=== PATIENT | male | born 1980 | race Two or more races ===

== ENCOUNTER 2017-02-25 04:26 | Emergency (ER) | payer SELFPAY ==
[2017-02-25 04:31] VITALS: O2SAT 96
--- NOTE | 2017-02-25 04:32 | EDPHY ---
H & P Stated Complaint: racoon bite on right leg and foot HPI/ROS: HPI CHIEF COMPLAINT: Raccoon bite to right leg HISTORY OF PRESENT ILLNESS: This patient 36-year-old male, from [facility], here on vacation, he was walking his dog around 4:00 a.m. when his dog started to pull him and bark. The next thing he knows there was a raccoon about a foot away from him it bit him the back of his right leg. Scratched his right foot. Patient is unsure of his tetanus shot is up-to-date. He has no allergies. Denies any medical problems. Presents emergency room for care of his raccoon bite. Lives in [facility] and is due to go back there tomorrow. Past Medical History: No medical history Past Surgical History: No surgical history Social History: Denies daily use of drugs alcohol tobacco products Family History: Noncontributory ROS REVIEW OF SYSTEMS: A comprehensive 10 point review of systems is otherwise negative aside from elements mentioned in the history of present illness. Exam Constitutional triage nursing summary reviewed, vital signs reviewed, awake/ alert. Eyes normal conjunctivae and sclera, EOMI, PERRLA. HENT normal inspection, atraumatic, moist mucus membranes, no epistaxis, neck supple/ no meningismus, no raccoon eyes. Respiratory clear to auscultation bilaterally, normal breath sounds, no respiratory distress, no wheezing. Cardiovascular rate normal, regular rhythm, no murmur, no edema, distal pulses normal. Gastrointestinal soft, non-tender, no rebound, no guarding, normal bowel sounds, no distension, no pulsatile mass. Genitourinary no CVA tenderness. Musculoskeletal no midline vertebral tenderness, full range of motion, no calf swelling, no tenderness of extremities, no meningismus, good pulses, neurovascularly intact. Skin right leg: Posterior right mid calf there is deep abrasions present possible puncture wound from a bite bryce, no laceration, also right foot dorsum of the right foot there is 2 abrasions. Otherwise unremarkable. Neurologic awake, alert and oriented x 3, AAOx3, moves all 4 extremities equally, motor intact, sensory intact, CN II-XII intact, normal cerebellar, normal vision, normal speech. Psychiatric normal mood/affect. Heme/Lymph/Immune no lymphadenopathy. Differential Diagnosis: Includes but is not limited to in a particular order: Need for tetanus, need for wound care, need for rabies immunoglobulin and rabies vaccination. Medical Decision Making: Plan for this patient patient's wounds will be cleaned. Update his tetanus shot. Start rabies immunoglobulin and rabies vaccine. The patient undergo a series of rabies shots. He will need follow-up in [facility]. As he is due to go there tomorrow. Will start his series here. Source: Patient - Personal History Current Tetanus Diphtheria and Acellular Pertussis (TDAP): Unsure - Medical/Surgical History Hx Asthma: No Hx Chronic Respiratory Disease: No Hx Diabetes: No Hx Cardiac Disease: No Hx Renal Disease: No Hx Cirrhosis: No Hx Alcoholism: No Hx HIV/AIDS: No Hx Splenectomy or Spleen Trauma: No - Social History Smoking Status: Never smoked Constitutional: Initial Vital Signs Temperature (C) 36.9 C 02/25/17 04:28 Heart Rate 81 02/25/17 04:28 Respiratory Rate 18 02/25/17 04:28 Blood Pressure 122/82 H 02/25/17 04:28 O2 Sat (%) 96 02/25/17 04:28 O2 Delivery Mode Room Air Allergies/Adverse Reactions: No Known Allergies Allergy (Unverified 02/25/17 04:28) Home Medications: Medication Instructions Recorded NK [No Known Home Meds] 02/25/17 Departure - Departure Disposition: Home, Routine, Self-Care Clinical Impression: Raccoon bite Qualifiers: Encounter type: initial encounter Qualified Code(s): W55.51XA - Bitten by raccoon, initial encounter Condition: Good Instructions: Tetanus (ED), Rabies Vaccine (ED), Rabies Immune Globulin (By injection) Additional Instructions: 1. Watch closely for signs of infection this includes redness, swelling, pus, drainage. 2. Please follow up with her doctor in [facility] you may need to go to an emergency room to get the next series of rabies immunoglobulin shots. 3. Rabies postexposure prophylaxis consists of a dose of human rabies immune globulin and rabies vaccine given on the day of the exposure,(which you recieved ) and then a dose of vaccine given again on days 3, 7, and 14 Referrals: NONE *PRIMARY CARE P,. [Primary Care Provider] - As per Instructions
[2017-02-25] MEDS ORDERED: RABIES VACC, HUMAN DIPLOID/PF 2.5 UNIT VIAL (RABAVERT) IM ONE (04:36)
[2017-02-25] MEDS ORDERED: RABIES IMMUNE GLOBULIN 300 UNIT/2 ML VIAL IM ONE (04:36)
[2017-02-25] MEDS ORDERED: TDAP ADULT 0.5 ML INJ (BOOSTRIX) IM ONE (04:36)
[2017-02-25 05:31] VITALS: BP 124/77; PULSE 61; RESP 16; TEMP 97.9
== END 2017-02-25 05:31 | disposition home or self-care (01) ==
DX: S81.851A Open bite, right lower leg, initial encounter (principal); Z23 Encounter for immunization; W55.51XA Bitten by raccoon, initial encounter; Y99.8 Other external cause status; Y93.01 Activity, walking, marching and hiking